=== PATIENT | female | born 1945 | race Caucasian/White ===

== ENCOUNTER 2022-05-10 10:20 | Emergency (ER) | payer MEDICARE, BC ==
[2022-05-10] MEDS ORDERED: Alum Hydrox/Mag Hydrox/Simeth 15 ML, Lidocaine 2% 15 ML PO ONE ×2 (12:20)
== END 2022-05-10 13:34 | disposition home or self-care (01) ==
LOC: JP.ED 10:20
DX: K20.90 Esophagitis, unspecified without bleeding (principal); I10 Essential (primary) hypertension; Z90.710 Acquired absence of both cervix and uterus; Z88.8 Allergy status to other drugs, medicaments and biological substances; Z91.040 Latex allergy status; Z79.899 Other long term (current) drug therapy
CPT/HCPCS: 70360; 93005; 99283; A9270; 93010; 99282